=== PATIENT | female | born 1990 | race Two or more races ===

== ENCOUNTER 2024-05-01 06:25 | Day surgery (SDC) | payer OTHER, SELFPAY ==
[2024-04-29 11:36] VITALS: BMI 32.8
[2024-04-29 12:15] LABS: Basophils # (Auto) 0.1 Thou/mm3 (0.0-0.2); Basophils % (Auto) 1 % (0-2.5); Eosinophils # (Auto) 0.1 Thou/mm3 (0.0-0.5); Eosinophils % (Auto) 1 % (0-10); Hematocrit 39.7 % (36.0-46.0); Hemoglobin 13.9 g/dL (12.0-16.0); Immature Granulocytes % (Auto) 0 % (0-0); Immature Granulocytes Auto 0.02 Thou/mm3 (0.00-0.00); Lymphocytes # (Auto) 3.1 Thou/mm3 (1.0-4.8); Lymphocytes % (Auto) 37 % (10-50); Mean Corpuscular Volume 80 fL (80-100); Monocytes # (Auto) 0.5 Thou/mm3 (0.0-0.8); Monocytes % (Auto) 6 % (0-12); Neutrophils # (Auto) 4.6 Thou/mm3 (1.8-7.7); Neutrophils % (Auto) 55 % (37-80); Nucleated Red Blood Cell % 0 /100 WBC (0); Platelet Count 261 Thou/mm3 (140-440); RDW Standard Deviation 35.7 fL (36.4-46.3); Red Blood Count 4.96 Miln/mm3 (4.00-5.20); White Blood Count 8.4 Thou/mm3 (3.6-11.0)
[2024-04-29 12:23] LABS: HCG,Qualitative Serum Negative
[2024-04-29 13:12] LABS: Hepatitis A Antibody IgM Non Reactive (Non React); Hepatitis B Core Antibody IgM Non Reactive (Non React); Hepatitis B Surface Antigen Non Reactive (Non React); Hepatitis C Antibody Non Reactive (Non React)
[2024-04-29 14:17] LABS: HIV (1&2) Antibody Rapid Non-Reactive
[2024-05-01] VITALS (7 sets, daily range): BP systolic 99–123; BP diastolic 48–74; PULSE 74–102; RESP 14–20; TEMP 36.6–37.1; O2SAT 97–98; BMI 35.2
[2024-05-01] MEDS: RINGERS LACTATED 1000 ML 1,000 ML 20 ML IV (07:11)
--- NOTE | 2024-05-01 07:50 | CHAP ---
Prayed with patient and gave encouragement.
--- NOTE | 2024-05-01 08:44 | PD.GYNHP ---
Documentation for date of: 05/01/24 NETWORK RELATIONS CONSULTANT - HPI History of Present Illness History of present illness: Ms. GOMES is a 33 year old female p1, is admitted for laparoscopic sterilization. Patient was multiple times counseled about different methods of contraception including long-acting reversible contraception like Nexplanon and IUD however patient strongly desires this procedure to be done and both her and her partner do not want any future children. Meds Home Medications and Allergies Home Medications ?Medication ?Instructions ?Recorded ?Confirmed ?Type ibuprofen 200 mg capsule 400 mg PO Q6H PRN pain 04/29/24 04/29/24 History Allergies Allergy/AdvReac Type Severity Reaction Status Date / Time No Known Allergies Allergy Verified 05/01/24 06:42 Exam - NETWORK RELATIONS CONSULTANT Vital Signs Temp Pulse Resp BP Pulse Ox 98 F 74 14 118/60 98 05/01/24 06:59 05/01/24 06:59 05/01/24 06:59 05/01/24 06:59 05/01/24 06:59 Constitutional Constitutional: no acute distress Routine HEENT Exam Head: Present normocephalic and atraumatic Eye: Present EOMI and PERRL ENT: Present mucous membranes moist Routine Neck Exam Neck: Present supple and trachea midline Routine Respiratory Exam Respiratory: Present chest non-tender, lungs clear, normal breath sounds and no resp distress Routine Cardiovascular Exam Cardiovascular: Present RRR Routine Abdominal Exam Abdominal: Present soft and normoactive bowel sounds Routine Extremities Exam Extremities: Present full ROM Routine Skin Exam Skin: Present intact and dry Routine Neurological Exam Neurological: Present alert, oriented X3 and CN II-XII intact Routine Psychiatric Exam Psychiatric: Present normal affect and normal thought process NETWORK RELATIONS CONSULTANT - Results Labs 04/29/24 11:48 Impressions Impression: 33-year-old para 1 admitted for laparoscopic salpingectomy Desires sterilization Well informed about chances of regret as she is only 33 years and only has 1 kid Laparoscopic surgery risks were also discussed Multiple times long-acting reversible contraception was offered Patient is adamant about having her permanent procedure to stop her fertility Assessment and Plan Additional Assessment & Plan Additional Plan: Laparoscopic bilateral salpingectomy under general anesthesia DVT prophylaxis Quality Measures Quality Measures VTE prophylaxis
--- NOTE | 2024-05-01 09:51 | SUR.PHASEI ---
0951 Patient arrived to recovery resting comfortably in [facility], on oxygen 10L via oxy mask with an oral airway in place, breathing unlabored, vital signs stable, dressing intact to lower abdomen; dermabond, no bleeding noted, lung sounds clear up auscultation, bilateral radial pulses present when palpated, report received from Yumiko GRANT/Dr. Parry and Tasia TINOCO/Gabrielle TINOCO
--- NOTE | 2024-05-01 10:02 | SUR.OPER ---
Patient has bruise and scratch on left inner thigh
--- NOTE | 2024-05-01 10:07 | PD.GYNPROC ---
Operative Note - SENIOR SAFETY SUPPORT MANAGER Procedure Date of procedure: 05/01/24 Procedure Performed: Laparoscopic bilateral salpingectomy Indication: Desires sterilization Pre-Op diagnosis: Same Post-Op diagnosis: Same Anesthesia type: General Procedure description: Patient was taken to the operating room. General anesthesia was given without any complications.? A time out was given confirming Ysabel Romero was undergoing the following, procedure,allergies, and surgeon.The patient was positioned in the dorsal lithotomy position. The bladder was emptied. The perineum was prepped with Betadine solution per routine.The abdomen was prepped with DuraPrep.Attention was then focused to the vagina.? A sponge placed in a ring forceps was placed in the posterior fornix and used as a uterine manipulator.? The surgeon then changed gloves to continue proper sterile technique. Attention was diverted to the abdomen. An umblical incision was first made, Two towel clips were placed lateral to the umbilicus in order to elevate the abdominal wall.? A hemostat was used to assess the depth to the fascia. While applying countertraction by lifting the towel clips, a Veress needle was used to enter the peritoneal cavity, a initial abdominal pressure of 12 mmHg was noted upon entry. Veress needle used for initial pneumoperitoneum establishment. 5 mm port used for the direct trocar entry the abdomen was then insufflated with CO2 gas to 15mmHg, under the opti-view system was advanced into the peritoneal entry.? The rt lower quadrant was evaluated and a 5-mm incision was made . 5-mm trocar placed under camera surveillance.? Left side evaluated and a 5mm trocar inserted under optiview surveillance. On observation: Normal anatomy with bilateral ovaries and tubes no peritoneal pathology identified. Using a laparoscopic Mcgregor grasper, gently right tube at the fimbrial end was picked up. Gradually , her right and left tube was from the mesosalpinx using Enseal device. Same repeated on the other side bilateral salpingectomy done, hemostasis ensured. All the bowel at the initial trocar entry point was examined no entry injuries were noted Estimated blood loss (ml): 1 Surgical staff Operation Date: 05/01/24 08:45 Case Staff Anesthesiologist: Parviz Parry RN First Assistant: Katharina Macario Diagnosis Problem List Completed Was Problem List Reviewed/Reconciled?: Yes
--- NOTE | 2024-05-01 10:50 | SUR.PHASEII ---
1050 Patient meets discharge criteria from recovery, awake and alert, breathing unlabored, vital signs stable, denies pain, dressing intact; no bleeding noted, patient drinking apple juice; denies nausea, patient voided in the restroom prior to discharge, patient able to dress herself into her clothing, discharge instructions given to patient and patients , signed discharge instructions. Patient given all her belongings prior to discharge, transported via wheelchair and left in a private vehicle
== END 2024-05-01 10:50 | disposition home or self-care (01) ==
PROVIDERS: PCP Family Medicine; Referring Provider Student in an Organized Health Care Education/Training Program; Visit Provider Student in an Organized Health Care Education/Training Program
PROC: (CPT 58720; principal; 2024-05-01 08:30)
DX: Z30.2 Encounter for sterilization (principal)
CPT/HCPCS: 58661; 36415; 80074; 84703; 85025; 86703; 86850; 86900; 86901; A4217; A4649; J0131; J0690; J1100; J1885; J2250; J2371; J2405; J2704; J3010; J3490; J7120